=== PATIENT | male | born 1965 | race Caucasian/White ===

== ENCOUNTER 2017-02-03 20:07 | Inpatient (IN) | payer SELFPAY ==
[2017-02-03] MEDS ORDERED: ASPIRIN 81 MG CHEWABLE TABLET PO ONE (20:35)
[2017-02-03 20:45] LABS: BASO % 0.4 % (0-6); EOS % 1.9 % (0-6); GRAN % 72.6 % (47-80); HEMATOCRIT 42.8 % (42.0-52.0); HEMOGLOBIN 14.4 gm/dl (14.0-18.0); LYMPH % 17.7 % (16-45); MEAN CELL VOLUME 92.8 fl (81-97); MEAN CORPUSCULAR HEMOGLOBIN 31.2 pg (27-33); MEAN CORPUSCULAR HGB CONC 33.6 g/dl (32-36); MEAN PLATELET VOLUME 11.1 fl (7.4-10.4); MONO % 7.4 % (0-9); PLATELET COUNT 143 K/uL (130-400); RED BLOOD COUNT 4.61 M/uL (4.40-5.70); RED CELL DISTRIBUTION WIDTH 11.9 % (11.5-14.5); WHITE BLOOD COUNT W/O DIFF 5.2 K/uL (4.2-12.2)
[2017-02-03] MEDS ORDERED: 0.9 % SODIUM CHLORIDE 1,000 ML BAG IV ONE ×2 (20:46→21:13)
[2017-02-03 20:49] LABS: ALB/GLOB RATIO 1.3 (1.1-1.8); ALBUMIN 4.1 gm/dL (3.5-5.0); ALKALINE PHOSPHATASE 69 U/L (38-126); AST/SGOT 41 U/L (17-59); BILIRUBIN,TOTAL 0.57 mg/dL (0.2-1.3); BLOOD UREA NITROGEN 17 mg/dL (9-20); CREATINE PHOSPHOKINASE 96 U/L (55-170); CREATININE 1.2 mg/dL (0.66-1.25); EST GLOMERULAR FILTRATION RATE > 60 ml/min; GLUCOSE,RANDOM 105 mg/dL (70-110); TOTAL PROTEIN 7.3 gm/dL (6.3-8.2)
[2017-02-03 20:54] LABS: ALT/SGPT 34 U/L (21-72)
--- NOTE | 2017-02-03 20:57 | Emergency Department Record ---
History of Present Illness - General Chief Complaint: Syncope Stated Complaint: CHEST PAIN Time Seen by Provider: 02/03/17 20:27 Source: Patient, Family, EMS Mode of Arrival: EMS Limitations: No limitations Travel/Exposure to [place] Within 21 Days of Symptoms: No - History of Present Illness Initial Comments: pt wasnt feeling well. he had felt light headed and not with it and spent most of the day in bed. he felt near syncope several times and then had a syncopal event in front of his while seated. she stated his head fell back and eyes rolled back and his l arm twitched. he stated that he has been having intermittant chest pain. pt has multiiple cardiac risk factors that have never been evaluated by a physician MD Complaint: Loss of consciousness Onset/Timin -: Minutes(s) Prodromal Symptoms: Chest pain Description of Event: Focal shaking Duration of Episode: 2 -: Second(s) Current Symptoms: None Treatments Prior to Arrival: None - [place] Coma Scale Eye Response: (4) Open spontaneously Motor Response: (6) Obeys commands Verbal Response: (5) Oriented [place] Total: 15 - Symptoms of Stroke Symptoms of stroke: Dizziness, Unable to Think Clearly - Related Data Allergies Allergy/AdvReac Type Severity Reaction Status Date / Time carbamazepine [From Tegretol] Allergy RASH Verified 12/17/15 17:41 Travel Screening - Travel/Exposure Within Last 30 Days Have you traveled within the last 30 days?: No - Travel/Exposure Within Last Year Have you traveled outside the [place] in the last year?: No - Additonal Travel Details Have you been exposed to anyone with a communicable illness?: No - Travel Symptoms Symptom Screening: None Review of Systems Reviewed: No additional complaints except as noted below Constitutional: Reports: As per HPI. Denies: Chills, Fever, Malaise, Night sweats, Weakness, Weight change Eyes: Reports: As per HPI. Denies: Eye discharge, Eye pain, Photophobia, Vision change ENT: Reports: As per HPI. Denies: Congestion, Dental pain, Ear pain, Epistaxis , Hearing loss, Throat pain Respiratory: Reports: As per HPI. Denies: Cough, Dyspnea, Hemoptysis, Stridor, Wheezes Cardiovascular: Reports: As per HPI. Denies: Arrhythmia, Chest pain, Dyspnea on exertion, Edema, Murmurs, Orthopnea, Palpitations, Paroxysmal nocturnal dyspnea, Rheumatic Fever, Syncope Endocrine: Reports: As per HPI. Denies: Fatigue, Heat or cold intolerance, Polydipsia, Polyuria Gastrointestinal: Reports: As per HPI. Denies: Abdominal pain, Constipation, Diarrhea, Hematemesis, Hematochezia, Melena, Nausea, Vomiting Genitourinary: Reports: As per HPI. Denies: Dysuria, Frequency, Hematuria, Incontinence, Retention, Testicular pain, Testicular mass, Urgency Musculoskeletal: Reports: As per HPI. Denies: Arthralgia, Back pain, Gout, Joint swelling, Myalgia, Neck pain Skin: Reports: As per HPI. Denies: Bruising, Change in color, Change in hair/ nails, Lesions, Pruritus, Rash Neurological: Reports: As per HPI. Denies: Abnormal gait, Confusion, Headache, Numbness, Paresthesias, Seizure, Tingling, Tremors, Vertigo, Weakness Psychiatric: Reports: As per HPI. Denies: Anxiety, Auditory hallucinations, Depression, Homicidal thoughts, Suicidal thoughts, Visual hallucinations Hematological/Lymphatic: Reports: As per HPI. Denies: Anemia, Blood Clots, Easy bleeding, Easy bruising, Swollen glands Past Medical History - SOCIAL HISTORY Smoking Status: Current every day smoker Alcohol Use: None Drug Use: None, Occassional Drug Use Detail:: Marijuana - RESPIRATORY Hx Respiratory Disorders: No - CARDIOVASCULAR Hx Cardio Disorders: No - NEURO Hx Neuro Disorders: No - GI Hx GI Disorders: No - Hx Genitourinary Disorders: No - ENDOCRINE Hx Endocrine Disorders: No - MUSCULOSKELETAL Hx Musculoskeletal Disorders: No - PSYCH Hx Psych Problems: No - HEMATOLOGY/ONCOLOGY Hx Hematology/Oncology Disorders: No Family Medical History Any Significant Family History?: No Physical Exam - General General Appearance: Alert, Oriented x3, Cooperative, Mild distress - Head Head exam: Normal inspection - Eye Eye exam: Normal appearance, PERRL, EOMI Pupils: Normal accommodation - ENT ENT exam: Normal exam, Mucous membranes moist, Normal external ear exam, Normal orophraynx, TM's normal bilaterally Ear exam: Normal external inspection. negative: External canal tenderness Nasal Exam: Normal inspection. negative: Discharge, Sinus tenderness Mouth exam: Normal external inspection, Tongue normal Teeth exam: Normal inspection. negative: Dental caries Throat exam: Normal inspection. negative: Tonsillar erythema, Tonsillar exudate - Neck Neck exam: Normal inspection, Full ROM. negative: Tenderness - Respiratory Respiratory exam: Normal lung sounds bilaterally. negative: Respiratory distress - Cardiovascular Cardiovascular Exam: Regular rate, Normal rhythm, Normal heart sounds - GI/Abdominal GI/Abdominal exam: Soft, Normal bowel sounds. negative: Tenderness - Rectal Rectal exam: Deferred - exam: Deferred - Extremities Extremities exam: Normal inspection, Full ROM, Normal capillary refill. negative: Tenderness - Back Back exam: Reports: Normal inspection, Full ROM. Denies: Muscle spasm, Rash noted, Tenderness - Neurological Neurological exam: Alert, CN II-XII intact, Normal gait, Oriented X3 - Psychiatric Psychiatric exam: Normal affect, Normal mood - Skin Skin exam: Dry, Intact, Normal color, Warm Course Vital Signs 02/03/17 02/03/17 20:08 20:47 Temperature 98.2 F Pulse Rate 84 Pulse Rate [ 81 Licensed Therapist ] Respiratory 20 20 Rate Blood Pressure 94/58 Blood Pressure 94/58 [Right Arm] Pulse Ox 95 97 Medical Decision Making - Management Options MDM Management: Additional Work-up Planned (e.g. ADM/Transfer/OP Study) - Data Complexity MDM Data: Labs Ordered and/or Reviewed, X-Ray Ordered and/or Reviewed, EKG Ordered and/or Reviewed - Lab Data Result diagrams: 02/03/17 20:19 02/03/17 20:19 Lab Results 02/03/17 02/03/17 Range/Units 20:19 20:19 WBC 5.2 (4.2-12.2) K/uL RBC 4.61 (4.40-5.70) M/uL Hgb 14.4 (14.0-18.0) gm/dl Hct 42.8 (42.0-52.0) % MCV 92.8 (81-97) fl MCH 31.2 (27-33) pg MCHC 33.6 (32-36) g/dl RDW 11.9 (11.5-14.5) % Plt Count 143 (130-400) K/uL MPV 11.1 H (7.4-10.4) fl Gran % 72.6 (47-80) % Lymphocytes % 17.7 (16-45) % Monocytes % 7.4 (0-9) % Eosinophils % 1.9 (0-6) % Basophils % 0.4 (0-6) % Sodium 143 (136-145) mmol/L Potassium 4.0 (3.5-5.1) mmol/L Chloride 106 (98-107) mmol/L Carbon Dioxide 27.0 (22-30) mmol/L Anion Gap 10.0 (7-16) BUN 17 (9-20) mg/dL Creatinine 1.2 (0.66-1.25) mg/dL Estimated GFR > 60 ml/min Random Glucose 105 (70-110) mg/dL Calcium 9.1 (8.5-10.1) mg/dL Total Bilirubin 0.57 (0.2-1.3) mg/dL AST 41 (17-59) U/L Alkaline Phosphatase 69 (38-126) U/L Creatine Kinase 96 (55-170) U/L Total Protein 7.3 (6.3-8.2) gm/dL Albumin 4.1 (3.5-5.0) gm/dL Globulin 3.2 (1.4-4.8) gm/dL Albumin/Globulin Ratio 1.3 (1.1-1.8) - EKG Data -: EKG Interpreted by [place] EKG: No Acute Changes - Radiology Data Radiology results: Report reviewed, Image reviewed Disposition Disposition: Admit Clinical Impression: Syncope Qualifiers: Syncope type: unspecified Qualified Code(s): R55 - Syncope and collapse Hypotension Qualifiers: Hypotension type: unspecified hypotension type Qualified Code(s): I95.9 - Hypotension, unspecified Chest pain Qualifiers: Chest pain type: unspecified Qualified Code(s): R07.9 - Chest pain, unspecified Disposition: Still a Patient at [facility] Decision to Admit: Admit from ER Decision to Admit Date: 02/03/17 Decision to Admit Time: 22:57 Forms: Patient Portal Access
[2017-02-03 21:01] LABS: CKMB 0.3 ug/L (0-6)
[2017-02-03 21:03] LABS: TROPONIN I < 0.012 ng/mL (0.00-0.034)
[2017-02-04 05:32] LABS: CHOLESTEROL 108 mg/dL (0-200); HDL CHOLESTEROL 40 mg/dL (40-60); TRIGLYCERIDES 86 mg/dL (30-200); VLDL CHOLESTEROL 17 mg/dL (10.00-40.00)
[2017-02-04 05:44] LABS: CKMB 0.3 ug/L (0-6)
[2017-02-04 05:45] LABS: TROPONIN I < 0.012 ng/mL (0.00-0.034)
--- NOTE | 2017-02-04 06:26 | History & Physical ---
History of Present Illness - Date of Service Date of Service for History & Physical: 02/04/17 - History of Present Illness Admitting Diagnosis: syncope, hypotension, chest pain History of Present Illness: 51 yo male admitted for chest pain and syncope episode. PMHx of smoking (1ppd x 30 years), h/o IV drug use (quit 2 years ago), occasional marijuana use. patient presented to our ED by EMS after a witnessed syncopal event. Patient states he felt weak and fatigued yesterday. ended up spending most of the day in bed. he had two episodes of feeling near syncope. Around 1730, patient's noticed his eyes roll to the back of his head and left arm twitch. In addition, patient experienced chest pain 2-3 days ago while sitting in his car. pain located substernally and described as stabbing. patient reports occasional, intermittent chest discomfort since. CP associated with deep inspiration and diaphoresis. upon presentation, BP 94/58 otherwise VS's unremarkable. CBC, CMP unremarkable. BNP 956, troponin/ck-mb negative x 2. EKG: suggesting pericarditis. head ct : negative. CXR: nap. ASCVD 10 yr risk %: <7.5%. Patient placed on tele and admitted for further cardiac work up. 02/04/17: patient lying in bed comfortably. denies cp since arriving to the hospital. Denies SOB, fever, chills, n/v, abd pain, change in bowel habits, pain with urination, dizziness or confusion. + lightheadedness and fatigue. patient reports a large amount of stress due to un employment, money issues and personal issues. he does not have a primary care provider. No h/o cardiac disease. no recent travel. no home medications. reports occasional marijuana use. h/o IV drug use (most recently was 2 years ago per patient). multiple tattoos. states he's had negative hep b,c and HIV testing in the past. Mother w/ history of vascular disease, otherwise no other first degree relatives with cardiac disease. Patient concerned to stay in the hospital as he states he can' t afford it. Travel Screening - Travel/Exposure Within Last 30 Days Have you traveled within the last 30 days?: Yes Location Detail:: [place] - Travel/Exposure Within Last Year Have you traveled outside the [place] in the last year?: No - Additonal Travel Details Have you been exposed to anyone with a communicable illness?: No - Travel Symptoms Symptom Screening: None Review of Systems Constitutional: Reports: As per HPI. Denies: Chills, Fever, Malaise, Night sweats, Weakness, Weight change Eyes: Reports: As per HPI. Denies: Eye discharge, Eye pain, Photophobia, Vision change ENT: Reports: As per HPI. Denies: Congestion, Dental pain, Ear pain, Epistaxis , Hearing loss, Throat pain Respiratory: Reports: As per HPI. Denies: Cough, Dyspnea, Hemoptysis, Stridor, Wheezes Cardiovascular: Reports: As per HPI. Denies: Arrhythmia, Chest pain, Dyspnea on exertion, Edema, Murmurs, Orthopnea, Palpitations, Paroxysmal nocturnal dyspnea, Rheumatic Fever, Syncope Endocrine: Reports: As per HPI. Denies: Fatigue, Heat or cold intolerance, Polydipsia, Polyuria Gastrointestinal: Reports: As per HPI. Denies: Abdominal pain, Constipation, Diarrhea, Hematemesis, Hematochezia, Melena, Nausea, Vomiting Genitourinary: Reports: As per HPI. Denies: Dysuria, Frequency, Hematuria, Incontinence, Retention, Testicular pain, Testicular mass, Urgency Musculoskeletal: Reports: As per HPI. Denies: Arthralgia, Back pain, Gout, Joint swelling, Myalgia, Neck pain Skin: Reports: As per HPI. Denies: Bruising, Change in color, Change in hair/ nails, Lesions, Pruritus, Rash Neurological: Reports: As per HPI. Denies: Abnormal gait, Confusion, Headache, Numbness, Paresthesias, Seizure, Tingling, Tremors, Vertigo, Weakness Psychiatric: Reports: As per HPI. Denies: Anxiety, Auditory hallucinations, Depression, Homicidal thoughts, Suicidal thoughts, Visual hallucinations Hematological/Lymphatic: Reports: As per HPI. Denies: Anemia, Blood Clots, Easy bleeding, Easy bruising, Swollen glands Past Medical History - SOCIAL HISTORY Smoking Status: Current every day smoker Alcohol Use: None Drug Use: Occassional Drug Use Detail:: Marijuana - RESPIRATORY Hx Respiratory Disorders: No - CARDIOVASCULAR Hx Cardio Disorders: No - NEURO Hx Neuro Disorders: No - GI Hx GI Disorders: No - Hx Genitourinary Disorders: No - ENDOCRINE Hx Endocrine Disorders: No - MUSCULOSKELETAL Hx Musculoskeletal Disorders: No - PSYCH Hx Psych Problems: No - HEMATOLOGY/ONCOLOGY Hx Hematology/Oncology Disorders: No Family Medical History Any Significant Family History?: No H&P Meds/Allergies - Allergies Allergies: Allergies Allergy/AdvReac Type Severity Reaction Status Date / Time carbamazepine [From Tegretol] Allergy RASH Verified 12/17/15 17:41 - Active Medications Active Medications: Current Medications Aspirin (Ecotrin (Ec)) 325 mg PO DAILY SUNIL Physical Exam - Vital Signs Vital Signs: Vital Signs - Last 24 Hrs Temp Pulse Pulse Resp BP BP Pulse Ox 02/04/17 06:22 92 H 16 100 02/04/17 05:25 97.7 F 76 16 102/62 96 02/04/17 01:25 97.8 F 80 16 97/51 96 02/03/17 23:30 98.1 F 80 16 102/61 98 02/03/17 23:21 80 20 100/62 95 - General General Appearance: Alert, Oriented x3, Cooperative, No acute distress Limitations: No limitations - Head Head exam: Normal inspection - Eye Eye exam: Normal appearance, PERRL, EOMI Pupils: Normal accommodation - ENT ENT exam: Normal exam, Mucous membranes moist, Normal external ear exam, Normal orophraynx, TM's normal bilaterally Ear exam: Normal external inspection. negative: External canal tenderness Nasal Exam: Normal inspection. negative: Discharge, Sinus tenderness Mouth exam: Normal external inspection, Tongue normal Teeth exam: Normal inspection (poor dentition). negative: Dental caries Throat exam: Normal inspection. negative: Tonsillar erythema, Tonsillar exudate - Neck Neck exam: Normal inspection, Full ROM. negative: Tenderness - Respiratory Respiratory exam: Normal lung sounds bilaterally. negative: Respiratory distress - Cardiovascular Cardiovascular Exam: Regular rate, Normal rhythm, Normal heart sounds - GI/Abdominal GI/Abdominal exam: Soft, Normal bowel sounds. negative: Tenderness - Rectal Rectal exam: Deferred - exam: Deferred - Extremities Extremities exam: Normal inspection, Full ROM, Normal capillary refill. negative: Tenderness - Back Back exam: Reports: Normal inspection, Full ROM. Denies: Muscle spasm, Rash noted, Tenderness - Neurological Neurological exam: Alert, CN II-XII intact, Normal gait, Oriented X3 - Psychiatric Psychiatric exam: Normal affect, Normal mood - Skin Skin exam: Dry, Intact, Normal color, Warm Results - Labs Result Diagrams: 02/03/17 20:19 06/14/17 20:19 Labs Last 24 Hours: Laboratory Results - last 24 hr 02/04/17 02/04/17 05:00 05:05 CK-MB (CK-2) Cancelled 0.3 Troponin I Cancelled < 0.012 Triglycerides 86 Cholesterol 108 LDL Cholesterol Meas[place] 51.0 VLDL Cholesterol 17 HDL Cholesterol 40 VTE H&P Assessment - Risk for VTE Risk for VTE: Yes Risk Level: Very Low Risk Assessment Date: 02/04/17 Risk Assessment Time: 10:00 VTE Orders Placed or Will Be Placed: No VTE Reason for No Prophylaxis: Not Indicated (patient ambulating the room) Plan - Inpatient Certification Inpatient Certification: Admit to inpatient care: Based on my medical assessment, after consideration of patient's risk factors (age, co-morbidities and patient presenting symptoms and acuity), I expect that this patient will remain in the hospital greater than or equal to two midnights and that the services needed warrant inpatient care because: Patient Risk Factors: [chest pain, cardiac risk factors, lightheadedness, fatigue, ] Estimated length of stay: [48-72 hours] The patient may reasonably be expected to be discharged or transferred to a hospital within 96 hours after admission to [facility]. Services needed: [cardiac monitoring, carotid dopplers, ECHO, cardiology consult , telemetry] Post hospital care (if known): [home, self care] I certify that my determination is in accordance with my understanding of Medicare requirements for reasonable and necessary inpatient services. 02/04/17 10:50 - Detailed Diagnosis and Plan (1) Chest pain Current Visit: Yes Status: Acute Qualifiers: Chest pain type: unspecified Qualified Code(s): R07.9 - Chest pain, unspecified Base Code: R07.9 - CHEST PAIN, UNSPECIFIED Comment: 02/04/17: cardiac vs. stress vs. other? BNP >900, cardiac enzymes negative x 2. EKG: suggesting pericarditis. Cardiac risk factors: male, smoker, mother with h/o vascular disease. ASCVD 10 yr risk %: <7.5%. Patient denies CP, SOB, syncope, jaw/neck pain since arriving to the hospital. - continue telemetry - carotid dopplers - ECHO - cardiology consult with possible stress test - VS's Q4 - daily ASA - monitor patient closely for any cp, sob, diaphoresis, jaw or neck pain. (2) Syncope Current Visit: Yes Status: Acute Qualifiers: Syncope type: unspecified Qualified Code(s): R55 - Syncope and collapse Base Code: R55 - SYNCOPE AND COLLAPSE Comment: 02/04/17: cardiac vs. dehydration vs. other? - CBC/CMP relatively negative. - head CT, CXR unremarkable. - EKG: suggesting pericarditis - Will order carotid dopplers, ECHO, and cardiac consult with possible stress test tomorrow - obtain UDS noting h/o drug abuse (3) Full code status Current Visit: Yes Status: Acute Base Code: Z78.9 - OTHER SPECIFIED HEALTH STATUS Comment: 02/04/17- pt is full code (4) DVT prophylaxis Current Visit: Yes Status: Acute Base Code: [id number] - Comment: 02/04/17: very low risk. patient ambulating the room
--- NOTE | 2017-02-04 07:18 | RADIOLOGY REPORT ---
EXAM: CHEST, TWO VIEWS HISTORY: SYNCOPE, TRANSIENT CHEST TIGHTNESS. TECHNIQUE: Two views of the chest were obtained. Comparison: None. FINDINGS: Small calcified granuloma left base. The lungs are clear. The cardiac silhouette, diaphragm, and osseous structures are unremarkable. IMPRESSION: NO ACUTE INTRATHORACIC PROCESS. OLD GRANULOMATOUS DISEASE. JOB NUMBER: [id number] MTDD
--- NOTE | 2017-02-04 07:20 | CT SCAN REPORT ---
EXAM: HEAD CT WITHOUT CONTRAST HISTORY: SYNCOPE. TECHNIQUE: Contiguous axial images from the cerebral convexities to the foramen magnum were obtained without contrast. Comparison: None. FINDINGS: The brain volume is normal. No acute intracranial hemorrhage, mass effect, or midline shift. No CT evidence of acute infarct. The ventricles, basal cisterns, and sulci are within normal limits. The osseous structures, soft tissues and paranasal sinuses are unremarkable. IMPRESSION: NORMAL HEAD CT. JOB NUMBER: [id number] MTDD
[2017-02-04] MEDS ORDERED: ASPIRIN 325 MG TAB ENTERIC-COATED PO SCH (10:00)
--- NOTE | 2017-02-04 10:24 | US CAROTID DOPPLER REPORT ---
EXAM: BILATERAL CAROTID DOPPLER ULTRASOUND HISTORY: SYNCOPE. TECHNIQUE: Arevalo scale, color Doppler and duplex Doppler evaluation of the carotid arteries bilateral was performed. COMPARISON: None. FINDINGS: 3 Vessel Right Peak Systolic/ End Diastolic Velocities Left Peak Systolic/ End Diastolic Velocities Proximal Common Carotid Artery 109.2 cm/s/26 cm/s 128.9 cm/s/33.9cm/s Mid Common Carotid Artery 118 cm/s/20.9 cm/s 108.2 cm/s/ 28.7 cm/s Distal Common Carotid Artery 96.6 cm/s/27.2 cm/s 92.6 cm/s/28.7 cm/s Proximal Internal Carotid Artery 91.9 cm/s/33.2 cm/s 59.2cm/s/26.7 cm/s Mid Internal Carotid Artery 74.7 cm/s/29.7 cm/s 81.3 cm/s/31.9 cm/s Distal Internal Carotid Artery 72.9 cm/s/36.6 cm/s 73.5 cm/s/35.8 cm/s Carotid Bulb 105.8 cm/s/29.7 cm/s 56.6 cm/s/22.8 cm/s Proximal External Carotid Artery 116.1 cm/s/15.9 cm/s 100.7 cm/s/12.5 cm/s d d d Right Flow Left Flow Vertebral Artery Antegrade Antegrade The peak systolic velocity ratio on the right was 0.6. The peak systolic velocity ratio on the left was 0.8. When the images themselves are visualized, a small amount of plaque is seen in the right CCA and a very small amount of plaque at the bulb. On the left there is a small amount of plaque in the proximal ECA. IMPRESSION: A MINOR AMOUNT OF PLAQUE WAS SEEN BILATERALLY. NO SIGNIFICANT STENOSIS IDENTIFIED IN EITHER CAROTID SYSTEM. JOB NUMBER: [id number] MTDD
[2017-02-04] MEDS: NICOTINE 21 MG/24 HOUR PATCH TD SCH (12:07)
[2017-02-04 12:18] LABS: BARBITURATE SCREEN URINE NOT DETECTED; BENZODIAZEPINE SCREEN URINE NOT DETECTED; METHADONE SCREEN URINE NOT DETECTED; THC SCREEN URINE DETECTED; TRICYCLIC ANTIDEPRESSANT SCRN NOT DETECTED
[2017-02-04 12:19] LABS: AMPHETAMINE SCREEN URINE NOT DETECTED; COCAINE SCREEN URINE NOT DETECTED; METHAMPHETAMINE SCREEN NOT DETECTED; OPIATE SCREEN URINE NOT DETECTED; OXYCODONE SCREEN URINE NOT DETECTED; PHENCYCLIDINE SCREEN URINE NOT DETECTED; PROPOXYPHENE SCREEN URINE NOT DETECTED
[2017-02-04 13:56] LABS: CKMB 0.3 ug/L (0-6)
[2017-02-04 13:57] LABS: TROPONIN I < 0.012 ng/mL (0.00-0.034)
[2017-02-04] MEDS: IBUPROFEN 600 MG TABLET PO SCH (16:44)
[2017-02-04] MEDS ORDERED: DIPHENHYDRAMINE HCL 25 MG CAPSULE PO PRN (20:54)
[2017-02-04] MEDS: ACETAMINOPHEN 500 MG TABLET PO PRN (21:36)
[2017-02-04 22:05] LABS: CKMB 0.3 ug/L (0-6)
[2017-02-04 22:06] LABS: TROPONIN I < 0.012 ng/mL (0.00-0.034)
[2017-02-05] MEDS: IBUPROFEN 600 MG TABLET PO SCH ×2 (01:17→06:57)
[2017-02-05] MEDS: NICOTINE 21 MG/24 HOUR PATCH TD SCH (09:26)
[2017-02-05] MEDS: ACETAMINOPHEN 500 MG TABLET PO PRN (09:27)
[2017-02-05] MEDS ORDERED: ASPIRIN 81 MG CHEWABLE TABLET PO SCH (10:00)
--- NOTE | 2017-02-05 11:08 | Discharge Summary ---
Providers Discharge Summary Date: 02/05/17 Date of admission: 02/03/17 23:19 Expected Date of Discharge: 02/05/17 Attending physician: PAUL LOTT Consults: Consult Orders 02/04/17 06:17 Consult - Cardiology NOW Consulting Provider: KARSTEN Cardiology Physician Instructions: Reason For Exam: chest pain Does pt have current emergency department manager?: Not Established Physical Exam - Vital Signs Vital Signs: Vital Signs - Last 24 Hrs Temp Pulse Pulse Resp BP Pulse Ox 02/05/17 09:33 98.4 F 80 16 119/67 98 02/05/17 09:00 16 02/05/17 05:47 97.9 F 68 68 16 110/68 98 02/05/17 01:13 97.6 F 69 18 104/69 98 02/04/17 21:50 98.0 F 68 68 18 116/62 98 02/04/17 20:26 78 18 02/04/17 16:47 98.1 F 73 18 120/66 98 02/04/17 13:00 98.5 F 80 20 127/61 98 - General General Appearance: Alert, Oriented x3, Cooperative, No acute distress Limitations: No limitations - Head Head exam: Normal inspection - Eye Eye exam: Normal appearance, PERRL, EOMI Pupils: Normal accommodation - ENT ENT exam: Normal exam, Mucous membranes moist, Normal external ear exam, Normal orophraynx, TM's normal bilaterally Ear exam: Normal external inspection. negative: External canal tenderness Nasal Exam: Normal inspection. negative: Discharge, Sinus tenderness Mouth exam: Normal external inspection, Tongue normal Teeth exam: Normal inspection (poor dentition). negative: Dental caries Throat exam: Normal inspection. negative: Tonsillar erythema, Tonsillar exudate - Neck Neck exam: Normal inspection, Full ROM. negative: Tenderness - Respiratory Respiratory exam: Normal lung sounds bilaterally. negative: Respiratory distress - Cardiovascular Cardiovascular Exam: Regular rate, Normal rhythm, Normal heart sounds - GI/Abdominal GI/Abdominal exam: Soft, Normal bowel sounds. negative: Tenderness - Rectal Rectal exam: Deferred - exam: Deferred - Extremities Extremities exam: Normal inspection, Full ROM, Normal capillary refill. negative: Tenderness - Back Back exam: Reports: Normal inspection, Full ROM. Denies: Muscle spasm, Rash noted, Tenderness - Neurological Neurological exam: Alert, CN II-XII intact, Normal gait, Oriented X3 - Psychiatric Psychiatric exam: Normal affect, Normal mood - Skin Skin exam: Dry, Intact, Normal color, Warm Hospitalization - Hospitalization Admission Diagnosis: syncope, hypotension, chest pain - Problem List/Discharge Diagnosis (1) Chest pain Current Visit: Yes Status: Acute Discharge Diagnosis: Chest pain type: unspecified Qualified Code(s): R07.9 - Chest pain, unspecified Base Code: R07.9 - CHEST PAIN, UNSPECIFIED Comment: 02/05/17: cardiac vs. stress vs. other? BNP >900, cardiac enzymes negative. EKG: suggesting pericarditis. Cardiac risk factors: male, smoker, mother with h/o vascular disease. ASCVD 10 yr risk %: <7.5%. Patient denies CP, SOB, syncope, jaw/neck pain since arriving to the hospital. - head CT, CXR unremarkable. - negative carotid dopplers - Patient evaluated by Dr. Smith. normal ECHO. negative stress test. - holter monitor suggested, however patient unable to afford. - Patient cleared for d/c by Cardiology. Encouraged patient to establish care with a family physician. He agree's to return re any new or worsening symptoms (2) Syncope Current Visit: Yes Status: Acute Discharge Diagnosis: Syncope type: unspecified Qualified Code(s): R55 - Syncope and collapse Base Code: R55 - SYNCOPE AND COLLAPSE Comment: 02/05/17: cardiac vs. dehydration vs. other? - head CT, CXR unremarkable. - negative carotid dopplers - Patient evaluated by Dr. Smith. normal ECHO. negative stress test. - holter monitor suggested, however patient unable to afford. - Patient cleared for d/c by Cardiology. Encouraged patient to establish care with a family physician. He agree's to return re any new or worsening symptoms. (3) Full code status Current Visit: Yes Status: Acute Base Code: Z78.9 - OTHER SPECIFIED HEALTH STATUS Comment: 02/05/17- pt remained full code - Hospitalization Course Disposition: Home, Self-Care Hospital Course: 51 yo male admitted for chest pain and syncope episode. PMHx of smoking (1ppd x 30 years), h/o IV drug use (quit 2 years ago), occasional marijuana use. patient presented to our ED by EMS after a witnessed syncopal event. Patient states he felt weak and fatigued yesterday. ended up spending most of the day in bed. he had two episodes of feeling near syncope. Around 1730, patient's noticed his eyes roll to the back of his head and left arm twitch. In addition, patient experienced chest pain 2-3 days ago while sitting in his car. pain located substernally and described as stabbing. patient reports occasional, intermittent chest discomfort since. CP associated with deep inspiration and diaphoresis. upon presentation, BP 94/58 otherwise VS's unremarkable. CBC, CMP unremarkable. BNP 956, troponin/ck-mb negative x 2. EKG: suggesting pericarditis. head ct : negative. CXR: nap. ASCVD 10 yr risk %: <7.5%. Patient placed on tele and admitted for further cardiac work up. 02/04/17: patient lying in bed comfortably. denies cp since arriving to the hospital. Denies SOB, fever, chills, n/v, abd pain, change in bowel habits, pain with urination, dizziness or confusion. + lightheadedness and fatigue. patient reports a large amount of stress due to un employment, money issues and personal issues. he does not have a primary care provider. No h/o cardiac disease. no recent travel. no home medications. reports occasional marijuana use. h/o IV drug use (most recently was 2 years ago per patient). multiple tattoos. states he's had negative hep b,c and HIV testing in the past. Mother w/ history of vascular disease, otherwise no other first degree relatives with cardiac disease. Patient concerned to stay in the hospital as he states he can' t afford it. 02/05/17: pt lying in bed comfortably. feeling well. denies cp during admission. tolerating meals. normal /GI output. no concerns. anxious to get home. Procedures: Imaging and X-Rays 02/04/17 06:16 ARTERIAL DOPPLER CAROTID RAVINDER [US] Stat Cardiology Procedures 02/04/17 06:15 Echocardiogram 2D - Limited ONCE 02/05/17 09:22 Stress EKG/STD Treadmill NOW Discharge Plan - Discharge Instructions Activity at Discharge: Increase Activity as Tolerated Diet at Discharge: Regular Diet Additional Instructions: Return if youre experiencing any chest pain, sob, dizziness, lightheadedness, headache, jaw or arm pain. Keep hydrated and be sure to eat every 2-3 hours. Establish care with a primary care provider. Return as needed
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
--- NOTE | 2017-02-09 17:00 | Stress Test Report ---
DATE OF SERVICE: 02/05/2017 Resting blood pressure is 128/80. Resting EKG. Sinus rhythm is present. Normal electrocardiogram. Patient exercised on a motorized treadmill using [place] protocol, exercising to 10 MET level. Heart rate rise to 155. Maximum blood pressure 155/90. There were no significant EKG changes. Test was discontinued due to shortness of breath. IMPRESSION: Negative normal stress test at 10 METS. This individual has an above-average level of cardiovascular fitness for age. MD ELZBIETA Ramirez
== END 2017-02-05 12:15 | disposition home or self-care (01) | DRG 313 ==
LOC: ER 20:07 → MEDSURG 23:19
PROVIDERS: ADMIT Family Medicine; ATTEND Family Medicine
DX: R07.9 Chest pain, unspecified (principal); R55 Syncope and collapse; Z78.9 Other specified health status; I95.9 Hypotension, unspecified; F17.200 Nicotine dependence, unspecified, uncomplicated; E86.0 Dehydration
CPT/HCPCS: 70450; 71020; 80053; 80061; 80305; 82550; 82553; 83880; 84484; 85025; 85379; 85651; 93005; 93010; 93017; 93880; 96360; 96361; 99223; 99239; 99285; J7030

== ENCOUNTER 2017-07-24 17:54 | Emergency (ER) | payer SELFPAY ==
[2017-07-24] MEDS ORDERED: 0.9 % SODIUM CHLORIDE 1,000 ML BAG IV ONE (18:12)
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
[2017-07-24 18:39] LABS: HEMATOCRIT 46.3 % (42.0-52.0); HEMOGLOBIN 16.3 gm/dl (14.0-18.0); MEAN CELL VOLUME 91.5 fl (81-97); MEAN CORPUSCULAR HEMOGLOBIN 32.2 pg (27-33); MEAN CORPUSCULAR HGB CONC 35.2 g/dl (32-36); MEAN PLATELET VOLUME 10.9 fl (7.4-10.4); PLATELET COUNT 174 K/uL (130-400); RED BLOOD COUNT 5.06 M/uL (4.40-5.70); RED CELL DISTRIBUTION WIDTH 13.3 % (11.5-14.5); WHITE BLOOD COUNT W/O DIFF 14.5 K/uL (4.2-12.2)
[2017-07-24 18:43] LABS: TRICYCLIC ANTIDEPRESSANT SCRN NOT DETECTED
[2017-07-24 18:44] LABS: AMPHETAMINE SCREEN URINE NOT DETECTED; BARBITURATE SCREEN URINE NOT DETECTED; BENZODIAZEPINE SCREEN URINE DETECTED; COCAINE SCREEN URINE NOT DETECTED; METHADONE SCREEN URINE NOT DETECTED; METHAMPHETAMINE SCREEN NOT DETECTED; OPIATE SCREEN URINE NOT DETECTED; OXYCODONE SCREEN URINE NOT DETECTED; PHENCYCLIDINE SCREEN URINE NOT DETECTED; PROPOXYPHENE SCREEN URINE NOT DETECTED; THC SCREEN URINE DETECTED
[2017-07-24 19:22] LABS: ALB/GLOB RATIO 1.4 (1.1-1.8); ALBUMIN 4.7 g/dL (4.0-5.0); ALCOHOL 0.183 g/dL (0-0.010); ALKALINE PHOSPHATASE 73 U/L (40-129); ALT/SGPT 20 U/L (<41); AST/SGOT 44 U/L (10.0-50.0); BLOOD UREA NITROGEN 15 mg/dL (6-20); CREATININE 1.3 mg/dL (0.7-1.2); EST GLOMERULAR FILTRATION RATE > 60 mL/min; GLUCOSE,RANDOM 85 mg/dL (74-109)
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
--- NOTE | 2017-07-24 23:33 | CT SCAN REPORT ---
EXAM: CT SCAN HEAD WO CONTRAST HISTORY: FELL INTO DITCH. LACERATION TO FOREHEAD. TECHNIQUE: Routine noncontrast CT examination of the head is performed. COMPARISON: CT head without contrast dated 02/03/17. FINDINGS: The ventricles and subarachnoid spaces remain normal in size. No convincing area of abnormally increased or decreased attenuation is noted throughout the brain substance. No abnormal extraaxial fluid collection is seen. No skull fracture is identified. There is a small anterior left frontal cephalohematoma measuring 3.5 cm in diameter and 8 mm in thickness. Tiny collections of subcutaneous air are present at this level consistent with history of laceration. There is minor mucosal thickening in the floor of the right maxillary sinus. The paranasal sinuses and mastoid air cells are otherwise grossly clear. The orbits as visualized are unremarkable. IMPRESSION: 1. NO INTRACRANIAL ABNORMALITY NOR SKULL FRACTURE IDENTIFIED. 2. SMALL LEFT FRONTAL CEPHALOHEMATOMA. 3. MINIMAL MUCOSAL THICKENING IN THE FLOOR OF THE RIGHT MAXILLARY SINUS. JOB NUMBER: [id number] MTDD
--- NOTE | 2017-07-24 23:43 | CT SCAN REPORT ---
EXAM: CT SCAN CERVICAL SPINE WO CONTRAST HISTORY: FELL INTO DITCH WITH LACERATION TO FOREHEAD. TECHNIQUE: Thin-collimation helical CT examination of the cervical spine is performed in the axial plane without intravenous contrast administration. Coronal and sagittal reformatted images are generated and reviewed. COMPARISON: No prior imaging of the cervical spine available for comparison. Same-day noncontrast CT of the head. FINDINGS: There is normal bone mineralization. The vertebral bodies are normal in alignment and height. No acute fracture, subluxation, destructive bone lesion , or prevertebral soft tissue swelling is seen. Multilevel degenerative disc/ endplate changes are present most pronounced at the C6-C7 level, where they are moderate in degree. The degenerative disc changes combine with congenital canal narrowing to cause multilevel central canal stenosis, which is most pronounced at the C3-C4 level and C6-C7 level, where the central canal stenosis is mild to moderate in degree and moderate in degree, respectively. At the C3-C4 level, there is a small central disc protrusion superimposed on disc bulging. At the C6 -C7 level, there is a small to moderate size right paracentral disc spur complex superimposed on disc bulging. Multilevel bilateral neural foraminal narrowing is present due to uncovertebral joint and facet joint spurring. This narrowing appears most pronounced on the right at the C2-C3 level, where it is moderate to severe. It is mild to moderate elsewhere. No cervical mass nor adenopathy is seen. Biapical lung scarring is identified associated with paraseptal emphysema. An old healed fracture deformity of the right mid clavicle is demonstrated. IMPRESSION: 1. NO ACUTE FRACTURE, SUBLUXATION, OR PREVERTEBRAL SOFT TISSUE SWELLING. 2. MULTILEVEL DEGENERATIVE CHANGES, DETAILED ABOVE, COMBINING WITH CONGENITAL CANAL NARROWING TO CAUSE CENTRAL CANAL STENOSIS. MULTILEVEL BILATERAL NEURAL FORAMINAL NARROWING OF VARYING DEGREES ALSO DEMONSTRATED SECONDARY TO UNCOVERTEBRAL JOINT AND FACET JOINT SPURRING. MRI OF THE CERVICAL SPINE COULD HELP FURTHER CHARACTERIZE THE DEGREE OF CERVICAL SPINAL STENOSIS. JOB NUMBER: [id number] [facility]
== END 2017-07-24 21:24 | disposition home or self-care (01) ==
LOC: ER 17:54
DX: S01.01XA Laceration without foreign body of scalp, initial encounter (principal); W01.10XA Fall on same level from slipping, tripping and stumbling with subsequent striking against unspecified object, initial encounter; Y92.480 Sidewalk as the place of occurrence of the external cause; F10.129 Alcohol abuse with intoxication, unspecified; Y90.6 Blood alcohol level of 120-199 mg/100 ml
CPT/HCPCS: 12001 ×2; 99284 ×2; 80053; 80305; 85027; 72125; 70450; G0480; 80320; J7030

== ENCOUNTER 2017-08-04 10:41 | Emergency (ER) | payer MEDICAID ==
--- NOTE | 2017-08-04 11:06 | Emergency Department Record ---
History of Present Illness - General Chief Complaint: Back Pain/Injury Stated Complaint: BACK PAIN Time Seen by Provider: 08/04/17 10:48 Source: Patient - History of Present Illness Initial Comments: patient here for back pain and he fell 111 days ago and he thinks he hurt his low back when he fell and it has progressively worse and he is also scheduled for neck surg for a herniated disk on Aug [address] [place] [address] Borrego. Patient currently taking neurontin bid and tramadol four times a day and valium one at night. All medications gone. Primary Dr. Lopez. [facility] [place]. Patient was seen here 11 days ago fell and was intoxicated and lacerated his head and he had a CT of head and neck. Both test negative. Patient took his own sutures out 2-3 days ago and laceration healing nicely. Onset/Timin -: Days(s) Similar Symptoms Previously: Yes Place: Street Severity scale (1-10): 9 Quality: Burning, Sharp, Stabbing Consistency: Constant Context: Fall Associated Symptoms: Difficulty urinating, Difficulty walking - Related Data Previous Rx's Medication Instructions Recorded Cyclobenzaprine HCl [Flexeril] 10 mg PO TID #20 tablet 08/04/17 Tramadol HCl [Ultram] 50 mg PO Q6H #20 tab 08/04/17 Allergies Allergy/AdvReac Type Severity Reaction Status Date / Time carbamazepine [From Tegretol] Allergy RASH Verified 07/24/17 18:12 Travel Screening - Travel/Exposure Within Last 30 Days Have you traveled within the last 30 days?: No - Travel/Exposure Within Last Year Have you traveled outside the [place] in the last year?: No - Additonal Travel Details Have you been exposed to anyone with a communicable illness?: No - Travel Symptoms Symptom Screening: None Review of Systems Reviewed: No additional complaints except as noted below Constitutional: Reports: As per HPI. Denies: Chills, Fever, Malaise, Night sweats, Weakness, Weight change Eyes: Reports: As per HPI. Denies: Eye discharge, Eye pain, Photophobia, Vision change ENT: Reports: As per HPI. Denies: Congestion, Dental pain, Ear pain, Epistaxis , Hearing loss, Throat pain Respiratory: Reports: As per HPI. Denies: Cough, Dyspnea, Hemoptysis, Stridor, Wheezes Cardiovascular: Reports: As per HPI. Denies: Arrhythmia, Chest pain, Dyspnea on exertion, Edema, Murmurs, Orthopnea, Palpitations, Paroxysmal nocturnal dyspnea, Rheumatic Fever, Syncope Endocrine: Reports: As per HPI. Denies: Fatigue, Heat or cold intolerance, Polydipsia, Polyuria Gastrointestinal: Reports: As per HPI. Denies: Abdominal pain, Constipation, Diarrhea, Hematemesis, Hematochezia, Melena, Nausea, Vomiting Genitourinary: Reports: As per HPI. Denies: Dysuria, Frequency, Hematuria, Incontinence, Retention, Testicular pain, Testicular mass, Urgency Musculoskeletal: Reports: As per HPI, Back pain, Neck pain. Denies: Arthralgia , Gout, Joint swelling, Myalgia Skin: Reports: As per HPI. Denies: Bruising, Change in color, Change in hair/ nails, Lesions, Pruritus, Rash Neurological: Reports: As per HPI. Denies: Abnormal gait, Confusion, Headache, Numbness, Paresthesias, Seizure, Tingling, Tremors, Vertigo, Weakness Psychiatric: Reports: As per HPI. Denies: Anxiety, Auditory hallucinations, Depression, Homicidal thoughts, Suicidal thoughts, Visual hallucinations Hematological/Lymphatic: Reports: As per HPI. Denies: Anemia, Blood Clots, Easy bleeding, Easy bruising, Swollen glands Past Medical History - SOCIAL HISTORY Smoking Status: Current every day smoker Alcohol Use: Occasional Drug Use: Rare Drug Use Detail:: Marijuana - RESPIRATORY Hx Respiratory Disorders: No - CARDIOVASCULAR Hx Cardio Disorders: No - NEURO Hx Neuro Disorders: No - GI Hx GI Disorders: No - Hx Genitourinary Disorders: No - ENDOCRINE Hx Endocrine Disorders: No - MUSCULOSKELETAL Hx Musculoskeletal Disorders: No - PSYCH Hx Psych Problems: No - HEMATOLOGY/ONCOLOGY Hx Hematology/Oncology Disorders: No Family Medical History Any Significant Family History?: No Physical Exam - General General Appearance: Alert, Oriented x3, Cooperative, No acute distress - Head Head exam: Normal inspection - Eye Eye exam: Normal appearance, PERRL Pupils: Normal accommodation - ENT ENT exam: Normal exam, Mucous membranes moist, Normal external ear exam, Normal orophraynx, TM's normal bilaterally Ear exam: Normal external inspection. negative: External canal tenderness Nasal Exam: Normal inspection. negative: Discharge, Sinus tenderness Mouth exam: Normal external inspection, Tongue normal Teeth exam: Normal inspection. negative: Dental caries Throat exam: Normal inspection. negative: Tonsillar erythema, Tonsillar exudate - Neck Neck exam: Normal inspection, Full ROM. negative: Tenderness - Respiratory Respiratory exam: Normal lung sounds bilaterally. negative: Respiratory distress - Cardiovascular Cardiovascular Exam: Regular rate, Normal rhythm, Normal heart sounds - GI/Abdominal GI/Abdominal exam: Soft, Normal bowel sounds. negative: Tenderness - Rectal Rectal exam: Deferred - exam: Deferred - Extremities Extremities exam: Normal inspection, Full ROM, Normal capillary refill. negative: Tenderness - Back Back exam: Reports: Normal inspection, Full ROM, Tenderness (low back pain bilateral and standing with pain, standing flexion to 80 degrees, able to stand on toes . some numbness into legs and butock bilateral and no incontience of stool or urine and urinating without problems.). Denies: Muscle spasm, Rash noted - Neurological Neurological exam: Alert, Normal gait, Oriented X3, Reflexes normal - Psychiatric Psychiatric exam: Normal affect, Normal mood - Skin Skin exam: Dry, Intact, Normal color, Warm Course Vital Signs 08/04/17 10:45 Temperature 98.2 F Pulse Rate 78 Respiratory 20 Rate Blood Pressure 141/81 Pulse Ox 99 Disposition Clinical Impression: Lumbar strain Qualifiers: Encounter type: initial encounter Qualified Code(s): S39.012A - Strain of muscle, fascia and tendon of lower back, initial encounter Disposition: Home, Self-Care Condition: (1) Good Instructions: Low Back Strain (ED) Additional Instructions: follow up with family in 2 days Prescriptions: Cyclobenzaprine HCl [Flexeril] 10 mg PO TID #20 tablet Tramadol HCl [Ultram] 50 mg PO Q6H #20 tab Forms: Patient Portal Access Time of Disposition: 11:40 Quality - Quality Measures Quality Measures: N/A - Blood Pressure Screening Does Patient Have Any of the Following: No Blood Pressure Classification: Pre-Hypertensive BP Reading Systolic Measurement: 141 Diastolic Measurement: 81 Screening for High Blood Pressure: < Pre-Hypertensive BP, F/U Documented > [ G8950] Pre-Hypertensive Follow-up Interventions: Referral to alternative/primary care provider.
[2017-08-04] MEDS: ORPHENADRINE CITRATE 60MG/2ML VIAL IM ONE (11:16)
[2017-08-04] MEDS: KETOROLAC 60 MG/2 ML VIAL IM STA (11:17)
--- NOTE | 2017-08-05 08:47 | RADIOLOGY REPORT ---
EXAM: LUMBAR SPINE, FOUR VIEWS HISTORY: FELL ELEVEN DAYS AGO. PERSISTENT LUMBAR PAIN. TECHNIQUE: Four views of the lumbar spine were obtained. Comparison: None. Encounter: Initial. FINDINGS: Five lumbar segments. No acute fracture or subluxation. Mild facet arthropathy at L4-L5 and L5-S1. IMPRESSION: 1. NO ACUTE FRACTURE OR SUBLUXATION OF THE LUMBAR SPINE. 2. MILD FACET ARTHROPATHY LOWER LUMBAR SPINE. JOB NUMBER: [id number] MTDD
== END 2017-08-04 11:51 | disposition home or self-care (01) ==
LOC: ER 10:41
DX: S39.012A Strain of muscle, fascia and tendon of lower back, initial encounter (principal); R20.0 Anesthesia of skin; W17.89XA Other fall from one level to another, initial encounter; Y92.410 Unspecified street and highway as the place of occurrence of the external cause; Z01.818 Encounter for other preprocedural examination
CPT/HCPCS: 71020; 72100; 81003; 85025; 85730; 93005; 96372; 99283; J1885; J2360

== ENCOUNTER 2017-12-23 12:41 | Emergency (ER) | payer MEDICAID ==
[2017-12-23] MEDS ORDERED: KETOROLAC 30 MG/ML VIAL IM ONE (13:50)
--- NOTE | 2017-12-23 13:55 | Emergency Department Record ---
History of Present Illness - General Chief Complaint: Neck Injury/Pain Stated Complaint: NECK PAIN/FALL Time Seen by Provider: 12/23/17 13:46 Source: Patient Mode of Arrival: Ambulatory Limitations: No limitations - History of Present Illness Initial Comments: The patient is here due to neck pain for 4 days. The patient states he had surgery on his neck 4 months ago due to a HNP by a Neurosurgeon in [place]. Last Wednesday 3 days ago he fell backwards and landed on his R elbow and good his neck causing pain to the posterior cervical spine area with intermittent radiation of the pain down the R arm to the elbow. He also has had slight numbness to the back of the R shoulder and arm. The patient states the pain and numbness are the exact same issues he had prior to surgery and were fixed by the surgery. He denies any arm weakness, or any visual changes, leg numbness, leg weakness or any bowel or bladder issues. MD Complaint: Neck injury, Neck pain Onset/Timin -: Days(s) Place: Home Radiation: Right upper extremity Severity: Constant Severity scale (1-10): 8 Quality: Aching, Sharp Consistency: Constant Improves With: None Worsens With: None Associated Symptoms: None Treatments Prior to Arrival: None - Related Data Previous Rx's Medication Instructions Recorded Cyclobenzaprine HCl [Flexeril] 10 mg PO TID PRN #20 tablet 12/23/17 Naproxen [Naprosyn] 500 mg PO BID #14 tablet. 12/23/17 Allergies Allergy/AdvReac Type Severity Reaction Status Date / Time carbamazepine [From Tegretol] Allergy RASH Verified 07/24/17 18:12 Travel Screening - Travel/Exposure Within Last 30 Days Have you traveled within the last 30 days?: No Review of Systems Constitutional: Denies: Chills, Fever Eyes: Denies: Eye discharge ENT: Denies: Congestion Respiratory: Denies: Cough, Dyspnea Past Medical History - SOCIAL HISTORY Smoking Status: Current every day smoker Alcohol Use: None - RESPIRATORY Hx Respiratory Disorders: No - CARDIOVASCULAR Hx Cardio Disorders: No - NEURO Hx Neuro Disorders: No - GI Hx GI Disorders: No - Hx Genitourinary Disorders: No - ENDOCRINE Hx Endocrine Disorders: No - MUSCULOSKELETAL Hx Musculoskeletal Disorders: No - PSYCH Hx Psych Problems: No - HEMATOLOGY/ONCOLOGY Hx Hematology/Oncology Disorders: No Family Medical History Any Significant Family History?: No Physical Exam - General General Appearance: Alert, Oriented x3, Cooperative, No acute distress - Head Head exam: Atraumatic, Normocephalic, Normal inspection - Eye Eye exam: Normal appearance, PERRL, EOMI - ENT Throat exam: Normal inspection. negative: Tonsillar erythema, Tonsillar exudate - Neck Neck exam: Normal inspection, Full ROM, Tenderness (There is significant tenderness to the posterior cervical region R > L.). negative: Lymphadenopathy - Respiratory Respiratory exam: Normal lung sounds bilaterally. negative: Respiratory distress - Cardiovascular Cardiovascular Exam: Regular rate, Normal rhythm, Normal heart sounds - GI/Abdominal GI/Abdominal exam: Soft, Normal bowel sounds. negative: Tenderness - Extremities Extremities exam: Normal inspection, Full ROM, Normal capillary refill. negative: Tenderness - Neurological Neurological exam: Alert, Motor sensory deficit (There is decreased sensation to the posterior R arm and shoulder. The motor exam is 5/5 in all groups to the upper extremities.), Normal gait, Oriented X3, Reflexes normal. negative: Abnormal gait Course Vital Signs 12/23/17 13:43 Temperature 97.8 F Pulse Rate 69 Respiratory 20 Rate Blood Pressure 117/77 Pulse Ox 99 - Reevaluation(s) Reevaluation #1: The patient states the Toradol has not helped and he would like some [place]. He used to be on that but is out now. He states also that he is not driving so we will give him some oral pain medicine here in the ED. 12/23/17 14:39 Reevaluation #2: The patient is doing better at this time. He denies any new numbness and has no weakness. I did discuss the CT report with the patient and the need for F/U with his Neurosurgeon. 12/23/17 15:32 Medical Decision Making - Data Complexity MDM Data: X-Ray Ordered and/or Reviewed - Radiology Data Radiology results: Report reviewed (Cervical CT: No acute changes, post op changes. ) Disposition Disposition: Discharge Clinical Impression: Post-op pain Disposition: Home, Self-Care Condition: (2) Stable Instructions: Neck Pain (ED) Additional Instructions: Please take the Naprosyn and Flexeril for pain and use the [place] if needed. Please see your Neurosurgeon early next week as planned. Return to the ER for any worsening pain, arm weakness, or any bowel or bladder issues. Prescriptions: Cyclobenzaprine HCl [Flexeril] 10 mg PO TID PRN #20 tablet PRN Reason: Pain Naproxen [Naprosyn] 500 mg PO BID #14 tablet.dr Forms: Patient Portal Access Time of Disposition: 15:28 Quality - Quality Measures Quality Measures: N/A - Blood Pressure Screening View Details: Yes Does Patient Have Any of the Following: No Blood Pressure Classification: Normal BP Reading Systolic Measurement: 117 Diastolic Measurement: 77 Screening for High Blood Pressure: < Normal BP, F/U Not Required > [G8783]
[2017-12-23] MEDS ORDERED: HYDROCODONE/APAP 5/325MG TABLET PO ONE ×2 (14:39→15:26)
--- NOTE | 2017-12-24 22:10 | CT SCAN REPORT ---
EXAM: CT SCAN CERVICAL SPINE WO CONTRAST HISTORY: NECK PAIN. TECHNIQUE: Axial CT images of the cervical spine with coronal and sagittal reconstructions. COMPARISON: Prior CT from 07/24/17. FINDINGS: Evaluation of spinal canal contents limited due to CT technique. Postsurgical changes with anterior fixation plate and screws extending from the C5 to the T1 levels. What appear to be partial corpectomy changes of C7. Correlate with surgical history. Vertebral body height and alignment is otherwise preserved. Emphysematous changes in the visualized lung apices. Minor osteophytic spurring at C3-4, C4-5, C5-6, C6-7. IMPRESSION: NO CT EVIDENCE FOR ACUTE C-SPINE ABNORMALITY. POSTSURGICAL CHANGES WITH MINOR DEGENERATIVE CHANGE, ABOVE. JOB NUMBER: [id number] MTDD
== END 2017-12-23 15:38 | disposition home or self-care (01) ==
LOC: ER 12:41
DX: G89.11 Acute pain due to trauma (principal); M54.2 Cervicalgia; M25.521 Pain in right elbow; M25.511 Pain in right shoulder; W18.39XA Other fall on same level, initial encounter; F17.210 Nicotine dependence, cigarettes, uncomplicated; Y92.009 Unspecified place in unspecified non-institutional (private) residence as the place of occurrence of the external cause
CPT/HCPCS: 99283 ×2; 96372; 72125; J1885